=== PATIENT | male | born 2000 | race Hispanic/Latino ===

== ENCOUNTER 2022-11-26 11:12 | Emergency (ER) | payer SELFPAY ==
[~2022-11-26] VITALS: Ht 157.5 cm; Wt 77.1 kg
[2022-11-26] MEDS ORDERED: ONDANSETRON HCL INJ 2MG/ML 2ML 2 MG/ML VIAL IV STA (11:49)
[2022-11-26] MEDS ORDERED: SODIUM CHLORIDE 0.9% 1000ML 1,000 ML IV SCH (11:51)
[2022-11-26] MEDS ORDERED: SODIUM CHLORIDE FLUSH 10 ML SYR IV PRN (11:51)
[2022-11-26] MEDS ORDERED: ONDANSETRON HCL INJ 2MG/ML 2ML 2 MG/ML VIAL ONE (12:08)
[2022-11-26] MEDS ORDERED: SODIUM CHLORIDE 0.9% 1000ML 1,000 ML ONE (12:09)
[2022-11-26 12:13] LABS: BASOPHILS # (AUTO) 0.1 (0.0-0.1); BASOPHILS % 0.8 % (0.0-1.0); EOSINOPHILS # (AUTO) 0.3 (0.0-0.4); EOSINOPHILS % 3.9 % (0.0-6.0); HEMATOCRIT 48.6 % (38.2-49.6); LYMPHOCYTES # (AUTO) 1.6 (1.0-3.2); LYMPHOCYTES % 20.6 % (18.0-39.1); MEAN CORPUSCULAR HEMOGLOBIN 29.8 pg (28-32); MEAN CORPUSCULAR VOLUME 85.1 fL (81-99); MONOCYTES # (AUTO) 0.5 (0.2-0.8); MONOCYTES % 6.6 % (4.4-11.3); NEUTROPHILS # (AUTO) 5.2 (2.1-6.9); NEUTROPHILS % 67.8 % (38.7-80.0); PLATELET COUNT 261 x10e3/uL (140-360); RED BLOOD COUNT 5.71 x10e6/uL (4.3-5.7); RED CELL DISTRIBUTION WIDTH 12.2 % (11.7-14.4)
[2022-11-26] MEDS ORDERED: IOPAMIDOL 370 MG/ML 100 ML INFUS..BTL INJ ONE ×2 (12:25→13:08)
[2022-11-26 12:30] LABS: INR 0.92; PROTHROMBIN TIME 12.6 seconds (11.9-14.5)
[2022-11-26 12:31] LABS: PARTIAL THROMBOPLASTIN TIME 29.6 seconds (23.8-35.5)
[2022-11-26 12:39] LABS: ALBUMIN 4.3 g/dL (3.5-5.0); ALBUMIN/GLOBULIN RATIO 1.2 (0.8-2.0); ANION GAP 15.3 mmol/L (8-16); POTASSIUM 4.3 mmol/L (3.5-5.1)
[2022-11-26 13:11] LABS: FREE THYROXINE INDEX 2.6011 (1.4-3.8); THYROID STIMULATING HORMONE 0.919 uIU/mL (0.350-4.940)
[2022-11-26] MEDS ORDERED: CLINDAMYCIN 600MG / 50ML 50 ML IV SCH (14:45)
== END 2022-11-26 19:05 | disposition other institution (70) ==
LOC: ER 11:22
DX: R22.1 Localized swelling, mass and lump, neck (principal); Q89.2 Congenital malformations of other endocrine glands; I51.7 Cardiomegaly; Z20.822 Contact with and (suspected) exposure to COVID-19
CPT/HCPCS: 36415; 70491; 80053; 83518; 84436; 84443; 84479; 84484; 85025; 85610; 85730; 87070; 93005; 99284; J2405; J7030; Q9967; U0002